=== PATIENT | female | born 1975 | race Caucasian/White ===

== ENCOUNTER 2016-08-12 20:47 | Emergency (ER) | payer OTHER ==
[2016-08-12] MEDS ORDERED: SODIUM CHLORIDE 1,000 ML IV ONE (20:54)
[2016-08-12] MEDS ORDERED: METOCLOPRAMIDE HCL INJECTION 10 MG/2 ML VIAL IVPUSH ONE (20:54)
[2016-08-12 21:05] VITALS: BP 137/86; PULSE 88; TEMP 98; BMI 24.2
--- NOTE | 2016-08-12 21:25 | PDOC ---
History of Present Illness - General Chief Complaint: Migraine Headache Stated Complaint: MIGRAINE Time Seen by Provider: 08/12/16 20:50 History Source: Patient Exam Limitations: No Limitations - History of Present Illness Initial Comments: 08/12/16 22:42 Patient is a 41 year old female with a significant past medical history hypothyroidism and chronic back pain who presents to the ED with complaint of a migraine. Patient states that while sitting down at work she developed pounding headache in nature localized to the mid occipital region. Patient states that it started around noon gradually, and has worsened throughout the day. Patient states that the headache is exacerbated with movements and bright lights. Patient reports nausea. Patient states that she came home from work and fell into a deep sleep but her headache did not subside. She reports 2 vomiting episodes today. Patient reports intermittent headache localized to the same region during the past month that usually subsides on its own after about an hour without any intervention. Patient states that she saw her PCP last that noted that it is related to stress. She notes that taking aleve or oxycodone today did not alleviate her headache. No vision changes, tingling or numbness, neck pain/stiffness, new back pain, fever/chills. She denies chest pain, SOB, or palpitations. Pt states she has been having poor sleep ~6-7 hrs/day but this is typical for her since she has a kid. She denies any recent trauma or falls. Past History - Past Medical History Allergies/Adverse Reactions: Allergies Allergy/AdvReac Type Severity Reaction Status Date / Time No Known Allergies Allergy Verified 08/12/16 20:49 Home Medications: Ambulatory Orders Hydrocodone/Acetaminophen [Hydrocodon-Acetaminoph 7.5-325] 1 each PO PRN Levothyroxine [Synthroid -] 25 mcg PO DAILY 08/12/16 Other medical history: MIGRAINE/ BACK PAIN - Psycho/Social/Smoking Cessation Hx Anxiety: No Suicidal Ideation: No Smoking History: Current every day smoker Have you smoked in the past 12 months: Yes Number of Cigarettes Smoked Daily: 2 Information on smoking cessation initiated: Yes 'Breaking Loose' booklet given: 08/12/16 Hx Alcohol Use: No Drug/Substance Use Hx: No Substance Use Type: None Review of Systems - Review of Systems Able to Perform ROS?: Yes Comments:: 08/12/16 22:44 CONSTITUTIONAL: No reported: Fever, Chills, Diaphoresis, Generalized Weakness, Malaise, Loss of Appetite HEENT: No reported: Rhinorrhea, Nasal Congestion, Throat Pain, Throat Swelling, Difficulty Swallowing, Mouth Swelling, Ear Pain, Eye Pain, Visual Changes CARDIOVASCULAR: No reported: Chest Pain, Syncope, Palpitations, Irregular Heart Rate, Lightheadedness, Peripheral Edema RESPIRATORY: No reported: Cough, Shortness of Breath, SOB with Exertion, Orthopnea, Wheezing , Stridor, Hemoptysis GASTROINTESTINAL: Reported: nausea, vomiting No reported: Abdominal pain, Abdominal Distension, Diarrhea, Constipation, Melena, Hematochezia GENITOURINARY: No reported: Dysuria, Frequency, Urgency, Hesitancy, Flank Pain, Genital Pain MUSCULOSKELETAL: No reported: Myalgia, Arthralgia, Joint Swelling, Back pain, Neck Pain SKIN: No reported: Rash, Itching, Pallor HEMEATOLOGIC/IMMUNOLOGIC: No reported: Easy Bleeding, Easy Bruising, Lymphadenopathy, Frequent infections ENDOCRINE: No reported: Unexplained Weight Gain, Unexplained Weight Loss, Heat Intolerance , Cold Intolerance NEUROLOGIC: Reported: headache No reported: Focal Weakness, Paresthesias, Vertigo, Lightheadedness, Unsteady Gait, Seizure, Mental Status Changes, Incontinence PSYCHIATRIC: No reported: Anxiety, Depression *Physical Exam - Vital Signs Last Vital Signs Temp Pulse Resp BP Pulse Ox 98 F 88 16 137/86 99 08/12/16 20:59 08/12/16 20:59 08/12/16 20:59 08/12/16 20:59 08/12/16 20:59 - Physical Exam Comments: 08/12/16 22:44 GENERAL: The patient is awake, alert, and fully oriented, Nontoxic - in no acute distress. HEAD: Normocephalic, atraumatic. EYES: extraocular movements intact, sclera anicteric, conjunctiva clear, pupils 4mm and symmetrical and reactive to light ENT: Normal voice, Moist mucous membranes. NECK: Normal range of motion, supple LUNGS: Breath sounds equal, clear to auscultation bilaterally. No wheezes, no rhonchi, no rales. HEART: Regular rate and rhythm, without murmur, rub or gallop. ABDOMEN: Soft, nontender, normoactive bowel sounds. No guarding, no rebound.No CVA tenderness EXTREMITIES: Normal range of motion, no edema. No clubbing or cyanosis. No cords, erythema, or tenderness. NEUROLOGICAL: No facial assymetry, Normal speech, moving all 4 extremities spontaneously and symmetrically, normal gait. PSYCH: Normal mood, normal affect. SKIN: Warm, Dry, normal turgor ED Treatment Course - Medications Given in the ED: ED Medications Discontinued Medications Generic Name Dose Route Start Last Admin Trade Name Palq PRN Reason Stop Dose Admin Metoclopramide HCl 10 mg 08/12/16 20:54 08/12/16 21:06 Reglan Injection - IVPUSH 08/12/16 20:55 10 mg ONCE ONE Administration Medical Decision Making - Medical Decision Making 08/12/16 21:23 41y F hx of hypothyroidism, presents with worsening headache x 1 day. The pt endorses having intermittent headache over the past month, but today was uc hworse than usual. Pt had 2 episodes of vomiting today, no associated enurological complaints including dizzines, vision changes, numbness/tingling/ weakness, neck stiffness. pts exam unremarkble beside appeaering uncomfortable suspect possible migraine vs tension headache, possibly secondary to external stressors/lack of sleep considered possible SAH, however feel this is less likely as it has been intermittent for the past month and todays was gradual onset and worsened in intensity. will give reglan/fluids will reassess 08/12/16 21:31 08/12/16 22:44 08/12/16 23:07 08/12/16 23:59 pt feeling significantly improved ct head was obtgained which is negative will dc the pt with outpatient management I discussed the physical exam findings, ancillary test results and final diagnoses with the patient. I answered all of the patient's questions. The patient was satisfied with the care received and felt comfortable with the discharge plan and treatment plan. The patient will call their primary care physician within 24 hours to arrange follow-up and will return to the Emergency Department with any new, persistent or worsening symptoms. *DC/Admit/Observation/Transfer Diagnosis at time of Disposition: Headache Qualifiers: Headache type: tension-type Headache chronicity pattern: acute headache Intractability: not intractable Qualified Code(s): G44.209 - Tension-type headache, unspecified, not intractable - Discharge Dispostion Disposition: HOME Condition at time of disposition: Improved Admit: No - Referrals Referrals: Demetria Presley MD [Staff Physician] - - Patient Instructions Printed Discharge Instructions: DI for Hormonal and Tension Headaches Additional Instructions: Return to the emergency department immediately with ANY new, persistent or worsening symptoms including worsening headache, vision changes, numbness/ tingling/weakness, persistent nausea and vomiting or any other concerns. Make sure you are getting adaqute sleep and hydration. You MUST call and follow up with your doctor tomorrow for further evaluation of your symptoms. Your emergency department visit is not complete without a followup with your doctor for reevaluation. Results were discussed with you. Please make sure your doctor reviews the results of your emergency evaluation. If you had any xrays during your visit, it was read preliminarily by myself, a Radiologist will review it and if there are any additional findings we will call you. Print Language: POLISH
[2016-08-12] MEDS ORDERED: MAGNESIUM SULF 50% (8.12 MEQ/2 ML-1 GM VIAL) IVPB ONE (21:43)
[2016-08-12] MEDS ORDERED: ACETAMINOPHEN 325 MG TABLET (FP) PO ONE (21:44)
[2016-08-12] MEDS ORDERED: ACETAMINOPHEN 1000 MG/100 ML VIAL (NON FORMULARY) IVPB ONE (21:45)
[2016-08-12] MEDS ORDERED: ACETAMINOPHEN INJECTION 100 ML IVPB ONE (21:46)
[2016-08-12] MEDS ORDERED: MAGNESIUM SULF 50% (8.12 MEQ/2 ML-1 GM VIAL) ONE (21:47)
== END 2016-08-13 00:06 | disposition home or self-care (01) ==
LOC: FER 20:47
PROC: 3E033NZ Introduction of Analgesics, Hypnotics, Sedatives into Peripheral Vein, Percutaneous Approach (ICD-10-PCS; principal; 2016-08-12)
PROC: 3E033GC Introduction of Other Therapeutic Substance into Peripheral Vein, Percutaneous Approach (ICD-10-PCS; 2016-08-12)
PROC: 3E0337Z Introduction of Electrolytic and Water Balance Substance into Peripheral Vein, Percutaneous Approach (ICD-10-PCS; 2016-08-12)
DX: G44.209 Tension-type headache, unspecified, not intractable (principal); F17.210 Nicotine dependence, cigarettes, uncomplicated; E03.9 Hypothyroidism, unspecified; G89.29 Other chronic pain
CPT/HCPCS: 70450-TC; 84703; 96361; 96374; 96375; 99281-25

== ENCOUNTER 2018-05-23 11:12 | Emergency (ER) | payer OTHER ==
[2018-05-23] MEDS ORDERED: SODIUM CHLORIDE 1,000 ML IV STA (11:14)
--- NOTE | 2018-05-23 11:15 | PDOC ---
History of Present Illness - General History Source: Patient Exam Limitations: No Limitations - History of Present Illness Initial Comments: 43 yo F w a pmh of pancreatic neoplasm s/p central pancreatectomy removal 1 week prior, hypothyroidism, GERD, PUD, and migraines presents to the ER after she was discharged from the hospital yesterday after a weeks stay at [place] with diffuse epigastric abdominal pain which started last night at 11:00 Pm, 10/ 10 in intensity, is pressure like in nature, radiates to the back, and has been associated with multiple episodes of Vomiting which she states might have had some blood in it at the end. She reports originally she was throwing up only what she ate but then the vomit turned yellow and possibly a bit orange. There was nothing that appeared green in the vomitus. Months ago she had significant abdominal pain which was diagnosed as ulcers. She was ultimately found to have a neoplasm on her pancreas which was operated on and removed on May [address] Torres at [place]. The pathology results of the neoplasm have not resulted yet. During her week long hospital stay she was noted to have an anemia of 7.5 which was not treated. Patient has not had a bowel movement since before her surgery on May 15. I spoke with her surgeon - Dr. Torres who is concerned that she might have gastroparesis and requested for her to be given IV hydration and analgesia. Patient denies any fevers, chills, infections, SOB, difficulty breathing, headache, blurry vision, neck pain, chest pain, dysuria, frequency, urgency, weakness, numbness, or tingling. PCP: Demetria Presley Surgeon: Dr. Torres - [phone] PSH: central pancreatectomy, Lap sebastian for ectopic removal Allergies: NKA, NKDA Social Hx: Denies smoking, drinking, or other substance usage Meds: Percocet, motrin, omerprazole, levaquin <Edgard Mendiola - Last Filed: 05/23/18 15:06> <Velma Arcos - Last Filed: 05/23/18 16:36> - General Chief Complaint: Nausea/Vomiting Stated Complaint: N/V ABD PAIN Time Seen by Provider: 05/23/18 11:15 Past History - Suicide/Smoking/Psychosocial Hx Smoking History: Current every day smoker Have you smoked in the past 12 months: Yes Number of Cigarettes Smoked Daily: 2 'Breaking Loose' booklet given: 08/13/16 Hx Alcohol Use: No Drug/Substance Use Hx: No Substance Use Type: None <Edgard Mendiola - Last Filed: 05/23/18 15:06> <Velma Arcos - Last Filed: 05/23/18 16:36> - Past Medical History Allergies/Adverse Reactions: Allergies Allergy/AdvReac Type Severity Reaction Status Date / Time No Known Allergies Allergy Verified 05/23/18 11:13 Home Medications: Ambulatory Orders Levofloxacin [Levaquin] 500 mg PO DAILY 05/23/18 Oxycodone HCl/Acetaminophen [Percocet 5-325 mg Tablet] 1 - 2 tab PO Q4H Pantoprazole Sodium 40 mg PO DAILY 05/23/18 Review of Systems - Review of Systems Able to Perform ROS?: Yes Comments:: CONSTITUTIONAL: Present: Fatigue Absent: fever, no chills EYES: Absent: visual changes ENT: Absent: ear pain, no sore throat CARDIOVASCULAR: Absent: chest pain, no palpitations RESPIRATORY: Absent: cough, no SOB GI: Present: Abdominal pain, nausea, vomiting Absent: no constipation, no diarrhea GENITOURINARY: Absent: dysuria, no frequency, no hematuria MUSKULOSKELETAL: Present: Back pain Absent: no arthralgia, no myalgia SKIN: Absent: rash NEURO: Absent: headache <DcviolaAnthonyEdgard - Last Filed: 05/23/18 15:06> *Physical Exam - Physical Exam Comments: GENERAL: Patient is in significant distress due to pain. Well developed, well nourished. Awake and alert. HEENT: Normocephalic, atraumatic. PERRLA, EOMI. + conjunctival pallor. Sclera are non- icteric. Dry mucous membranes. Oropharynx is clear. NECK: Supple. Full ROM. No JVD. No thyromegaly. No lymphadenopathy. CARDIOVASCULAR: Regular rate and rhythm. No murmurs, rubs, or gallops. Distal pulses are 2+ and symmetric. PULMONARY: No evidence of respiratory distress. Lungs clear to auscultation bilaterally. No wheezing, rales or rhonchi. ABDOMINAL: There is significant TTP in the epigastric region and general abdominal discomfort to palpation diffusely. Abdomen is soft with a midline surgical scar and elida. The top half of the surgical scar appears more erythematous than the lower half but the top half is not more tender to palpation than the lower half. Absent bowel sounds. Abdomen is non distended. No rebound or guarding. No organomegaly. MUSCULOSKELETAL Normal range of motion at all joints. No bony deformities or tenderness. No CVA tenderness. EXTREMITIES: No cyanosis. No clubbing. No edema. No calf tenderness. SKIN: Warm and dry. Normal capillary refill. No rashes other than surgical site. No jaundice. NEUROLOGICAL: Alert, awake, appropriate. Cranial nerves 2-12 intact. Normal speech. Gait is normal without ataxia. PSYCHIATRIC: Cooperative. Good eye contact. Appropriate mood and affect. <Edgard Mendiola - Last Filed: 05/23/18 15:06> - Vital Signs Last Vital Signs Temp Pulse Resp BP Pulse Ox 98.8 F 76 17 115/65 100 05/23/18 14:14 05/23/18 14:14 05/23/18 11:13 05/23/18 14:14 05/23/18 14:14 <Velma Arcos - Last Filed: 05/23/18 16:36> Moderate Sedation - Procedure Monitoring Vital Signs: Procedure Monitoring Vital Signs Temperature 98.8 F 05/23/18 14:14 Pulse Rate 76 05/23/18 14:14 Respiratory Rate 17 05/23/18 11:13 Blood Pressure 115/65 05/23/18 14:14 O2 Sat by Pulse Oximetry (%) 100 05/23/18 14:14 <Velma Arcos - Last Filed: 05/23/18 16:36> ED Treatment Course - LABORATORY CBC & Chemistry Diagram: 05/23/18 11:24 05/23/18 11:24 <Edgard Mendiola - Last Filed: 05/23/18 15:06> - LABORATORY CBC & Chemistry Diagram: 05/23/18 11:24 05/23/18 11:24 - ADDITIONAL ORDERS Additional order review: Laboratory Results 05/23/18 05/23/18 05/23/18 12:39 12:29 12:00 Sodium Potassium Chloride Carbon Dioxide Anion Gap BUN Creatinine Creat Clearance w eGFR Random Glucose Lactic Acid Calcium Total Bilirubin AST ALT Alkaline Phosphatase Total Protein Albumin Lipase Serum , Qual Negative Urine Color Yellow Urine Appearance Clear Urine pH 7.0 Ur Specific [place] 1.020 Urine Protein Negative Urine Glucose (UA) Negative Urine Ketones 3+ H Urine Blood Trace-intact H Urine Nitrite Negative Urine Bilirubin Negative Urine Urobilinogen 0.2 Ur Leukocyte Esterase Negative Urine RBC 0-2 Urine WBC 2-5 Ur Epithelial Cells 3+ Urine Bacteria 3+ Urine HCG, Qual Negative Blood Type Antibody Screen 05/23/18 05/23/18 05/23/18 11:43 11:36 11:34 Sodium Potassium Chloride Carbon Dioxide Anion Gap BUN Creatinine Creat Clearance w eGFR Random Glucose Lactic Acid 0.7 Calcium Total Bilirubin AST ALT Alkaline Phosphatase Total Protein Albumin Lipase Serum , Qual Urine Color Urine Appearance Urine pH Ur Specific [place] Urine Protein Urine Glucose (UA) Urine Ketones Urine Blood Urine Nitrite Urine Bilirubin Urine Urobilinogen Ur Leukocyte Esterase Urine RBC Urine WBC Ur Epithelial Cells Urine Bacteria Urine HCG, Qual Blood Type Cancelled Cancelled Antibody Screen Cancelled 05/23/18 11:24 Sodium 137 Potassium 3.9 Chloride 103 Carbon Dioxide 23 Anion Gap 11 BUN 5 L Creatinine 0.6 Creat Clearance w eGFR > 60 Random Glucose 106 Lactic Acid Calcium 9.0 Total Bilirubin 0.5 AST 52 H ALT 43 Alkaline Phosphatase 95 Total Protein 6.5 Albumin 3.4 Lipase 2599 H Serum , Qual Urine Color Urine Appearance Urine pH Ur Specific [place] Urine Protein Urine Glucose (UA) Urine Ketones Urine Blood Urine Nitrite Urine Bilirubin Urine Urobilinogen Ur Leukocyte Esterase Urine RBC Urine WBC Ur Epithelial Cells Urine Bacteria Urine HCG, Qual Blood Type Antibody Screen 05/23/18 11:24 RBC 3.20 L MCV 92.0 MCHC 32.9 RDW 14.0 MPV 8.8 Neutrophils % 89.4 H Lymphocytes % 6.6 L Monocytes % 3.6 L Eosinophils % 0.1 Basophils % 0.3 - RADIOLOGY Radiology Studies Ordered: Category Date Time Status ABDOMEN & PELVIS CT WITH CONTR [CT] Stat CT Scan 05/23/18 13:24 Taken - Medications Given in the ED: ED Medications Discontinued Medications Generic Name Dose Route Start Last Admin Trade Name Freq PRN Reason Stop Dose Admin Acetaminophen 1,000 mg 05/23/18 11:25 05/23/18 11:30 Ofirmev Injection - IVPB 05/23/18 11:26 1,000 mg ONCE ONE Administration Sodium Chloride 1,000 mls @ 1,000 mls/hr 05/23/18 11:14 05/23/18 11:20 Normal Saline - IV 05/23/18 12:13 1,000 mls/hr ASDIR STA Administration Famotidine/Sodium Chloride 20 mg in 50 mls @ 100 mls/hr 05/23/18 12:15 12:48 Pepcid 20 Mg Premixed Ivpb - IVPB 05/23/18 12:44 100 mls/hr ONCE ONE Administration Lactated Ringer's 1,000 ml in 1,000 mls @ 1,000 mls/hr 05/23/18 13:01 13:27 Lactated Ringers Solution IV 05/23/18 14:00 1,000 mls/hr ONCE ONE Administration Lidocaine 2 patch 05/23/18 11:33 05/23/18 11:54 Lidoderm Patch - TP 05/23/18 11:34 2 patch ONCE ONE Administration Metoclopramide HCl 10 mg 05/23/18 12:15 05/23/18 12:34 Reglan Injection - IVPUSH 05/23/18 12:16 10 mg ONCE ONE Administration Morphine Sulfate 4 mg 05/23/18 11:36 05/23/18 11:45 Morphine Injection - IVPUSH 05/23/18 11:37 4 mg ONCE ONE Administration Morphine Sulfate 4 mg 05/23/18 12:15 05/23/18 12:34 Morphine Injection - IVPUSH 05/23/18 12:16 4 mg ONCE ONE Administration Ondansetron HCl 4 mg 05/23/18 11:25 05/23/18 11:45 Zofran Injection IVPUSH 05/23/18 11:26 4 mg ONCE ONE Administration Sodium Chloride 1,000 ml 05/23/18 11:40 05/23/18 12:34 Normal Saline - IV 05/23/18 11:41 1,000 ml ONCE ONE Administration <Velma Arcos - Last Filed: 05/23/18 16:36> Medical Decision Making - Medical Decision Making 43 yo F w a pmh of pancreatic neoplasm s/p central pancreatectomy removal 1 week prior, hypothyroidism, GERD, PUD, and migraines presents to the ER after she was discharged from the hospital yesterday after a weeks stay at [place] with diffuse epigastric abdominal pain which started last night at 11:00 Pm, 10/ 10 in intensity, is pressure like in nature, radiates to the back, and has been associated with multiple episodes of Vomiting which she states might have had some blood in it at the end. She reports originally she was throwing up only what she ate but then the vomit turned yello and possibly a bit orange. There was nothing that appeared green in the vomitus. Months ago she had significant abdominal pain which was diagnosed as ulcers. She was ultimately found to have a neoplasm on her pancreas which was operated on and removed on May [address] Torres at [place]. The pathology results of the neoplasm have not resulted yet. During her week long hospital stay she was noted to have an anemia of 7.5 which was not treated. Patient has not had a bowel movement since before her surgery on May 15. I spoke with her surgeon - Dr. Torres who is concerned that she might have gastroparesis and requested for her to be given IV hydration and analgesia. - VSS DDx IBNLT: Gastroparesis vs paralytic ileus vs SBO, Surgical site infection, pancreatitis, peritonitis, post surgical pain, dehydration, cholecystitis, gastritis Plan: Labs, urine, EKG, CTAP, Analgesia, Zofran, IV hydration, more supportive care, re-assess, possible transfer back to [place]. Patient cannot tolerate PO contrast, so will only obtain an IV CTAP. Lipase elevated at 2599. This is likely a case of Post-OP pancreatitis. Will start administering lactated ringers. CTAP shows clear cut pancreatitis with likely pseudocyst Spoke with her Doctor Brian who says they will take the patient back at [place] - Dr. Torres is coordinating the transfer through the [facility] transfer center. - Requests disc of CT to be given with patient. [phone] - [place] transfer line center. <Edgard Mendiola - Last Filed: 05/23/18 15:06> - Medical Decision Making spoke with surgical services [facility], med/surg bed at [place]. signed out case with HPI/PE, labs and CT results, ED course. transfer center to dispatch ambulance 430PM 05/23/18 16:30 05/23/18 16:35 <Velma Arcos - Last Filed: 05/23/18 16:36> *DC/Admit/Observation/Transfer - Discharge Dispostion Decision to Admit order: No <Edgard Mendiola - Last Filed: 05/23/18 15:06> - Transfer to Acute Care Facility Receiving Facility: [facility]) (Dr Torres, surgical attending) <Velma Arcos - Last Filed: 05/23/18 16:36> Diagnosis at time of Disposition: Acute pancreatitis Qualifiers: Pancreatitis type: unspecified pancreatitis type Acute pancreatitis complication: unspecified Qualified Code(s): K85.90 - Acute pancreatitis without necrosis or infection, unspecified - Discharge Dispostion Disposition: TRANSFER ACUTE CARE/OTHER HOSP Condition at time of disposition: Guarded
[2018-05-23 11:17] VITALS: BMI 22.6
[2018-05-23] MEDS ORDERED: ACETAMINOPHEN 1000 MG/100 ML VIAL (NON FORMULARY) IVPB ONE (11:25)
[2018-05-23] MEDS ORDERED: ONDANSETRON 4 MG/2 ML VIAL ONE (11:25)
[2018-05-23] MEDS ORDERED: ONDANSETRON 4 MG/2 ML VIAL IVPUSH ONE (11:25)
[2018-05-23] MEDS ORDERED: ACETAMINOPHEN INJECTION 100 ML IVPB ONE (11:27)
[2018-05-23] MEDS ORDERED: LIDOCAINE 5% TOPICAL PATCH TP ONE (11:33)
[2018-05-23] MEDS ORDERED: morphine CARPU-JECT 4 MG/1 ML DISP.SYRIN IVPUSH ONE ×4 (11:36→17:08)
[2018-05-23 11:37] LABS: BASO % 0.3 % (0-2.0); EOS % 0.1 % (0-4.5); HEMATOCRIT 29.5 % (32.4-45.2); HEMOGLOBIN 9.7 GM/dl (10.7-15.3); LYMPH % 6.6 % (8-40); MCH 30.3 pg (25.7-33.7); MCHC 32.9 g/dl (32.0-36.0); MEAN PLT VOLUME 8.8 fl (7.5-11.1); MONO % 3.6 % (3.8-10.2); NEUT % 89.4 % (42.8-82.8); PLATELET COUNT 248 K/MM3 (134-434); WHITE BLOOD COUNT 7.5 K/mm3 (4.0-10.8)
[2018-05-23] MEDS ORDERED: morphine SULFATE 4 MG/ML VIAL ONE ×4 (11:39→17:08)
[2018-05-23] MEDS ORDERED: SODIUM CHLORIDE 0.9% 500 ML INFUS.BAG IV ONE (11:40)
[2018-05-23 11:45] LABS: ALBUMIN 3.4 g/dl (3.4-5.0); ALK PHOS 95 U/L (45-117); ANION GAP 11 MMOL/L (8-16); BILIRUBIN,TOTAL 0.5 mg/dl (0.2-1); BLOOD UREA NITROGEN 5 mg/dl (7-18); CHLORIDE 103 mmol/L (98-107); CO2 23 mmol/L (21-32); CREATININE 0.6 mg/dl (0.55-1.3); GLUCOSE,RANDOM 106 mg/dl (74-106); POTASSIUM 3.9 mmol/L (3.5-5.1); SGOT/AST 52 U/L (15-37); SGPT/ALT 43 U/L (13-61); SODIUM 137 mmol/L (136-145); TOT PROT 6.5 g/dl (6.4-8.2)
[2018-05-23] MEDS ORDERED: LIDOCAINE 5% TOPICAL PATCH ONE (11:47)
[2018-05-23] MEDS ORDERED: METOCLOPRAMIDE HCL INJECTION 10 MG/2 ML VIAL IVPUSH ONE (12:15)
[2018-05-23] MEDS ORDERED: FAMOTIDINE 20 MG/50 ML IVPB 20 MG/50 ML MG IVPB ONE ×2 (12:15→12:18)
[2018-05-23] MEDS ORDERED: METOCLOPRAMIDE HCL INJECTION 10 MG/2 ML VIAL ONE (12:18)
--- NOTE | 2018-05-23 12:21 | PDOC ---
Attending Attestation - Resident Resident Name: Edgard Mendiola - ED Attending Attestation I have performed the following: I have examined & evaluated the patient, The case was reviewed & discussed with the resident, I agree w/resident's findings & plan - HPI HPI: 05/23/18 12:17 43 YOF with h/o hypothyroidism, migraines and recent pancreatic mass s/p central pancreatic [facility] Torres, on 05/15/18, c/b anemia, transfused blood. Dcd on levaquin course, pain control regimen, tolerating PO and otherwise unremarkable hospitalization stay when she was dcd yesterday. Now with diffuse abdominal pain, nausea and NBNB emesis x multiple episodes, since last night. +flatus, but still no BM. No fevers. Abdominal surgical site with elida still in place, no drainage/ purulence or skin changes. - Physicial Exam PE: 05/23/18 12:17 in moderate distress 2/2 pain, malaised. PERRL, EOMI, dry mucus membranes, pale conjunctiva, anicteric; neck supple. lungs clear, RRR, abdomen soft diffusely tender, midline vertical surgical scar c/d with elida, no prominent erythema or spreading skin changes, no palp fluctuance or firmness. no abdominal wound dehiscence. no CVAT. HUNTER x4, no focal neuro deficits. No peripheral edema. normal color for ethnicity, [facility]. 05/23/18 12:19 - Medical Decision Making 05/23/18 12:18 See HPI for details Vital signs reviewed, wnl. DDx. post op GI infection, wound dehiscence/infection, pancreatitis, hepatitis, electrolyte/metabolic derangements, post op ileus vs SBO. fistula, anastomotic leak. peritonititis, perf viscus. Prior notes reviewed, including admissions, discharges and consultations from [facility]. laboratory results and imaging reviewed, basic labs and lytes wnl, baseline anemia 9.7/29 similar to prior. also notable for +very elevated lipase , c/w acute pancreatitis.. neg preg test UA_unremarkable. no s/s infection. EKG normal sinus rhythm at 81 bpm, no interval abnormalities, narrow QRS, ST and T wave segments and morphology normal. CT scan a/p, with appearance of acute pancreatitis and ?pseudocyst, inflammatory /edematous changes to surrounding structures and mesentery, and small FF/ ascites noted. ED course: analgesia x multiple rounds, IVF, pepcid and antiemetics zofran/ reglan attempts at oral contrast, but cannot tolerate despite meds labs c/w acute pancreatitis, changed to LR hydration. spoke with primary surgeon, Dr Torres by the resident involved. with results. accepted for acute pancreatitis in post op state, admission, bowel rest, NPO and symptom control. arranging for transfer to [facility]. - discussed results with patient and surgeon, paperwork and transfer consent filled out with impression and plan and surgical admission Transfer Note: The risks and benefits of transfer to another facility were discussed with the patient and/or their family. The patient and /or family CONSENT TO TRANSFER. Specific Risks of Transfer Include: worsening of the patient's condition during the transfer process, which may lead to the patient's permanent disability or . Specific Benefits of Transfer Include: providing the patient with a higher level of care/specialized care not available at [facility]. Please see the Hospital TRANSFER FORM for further details of this patient's transfer. Calls made to arrange follow-up care. 05/23/18 15:06 Heart Score/ECG Review - ECG Impressions Normal ECG: Yes Comment:: 05/23/18 12:20 EKG normal sinus rhythm at 81 bpm, no interval abnormalities, narrow QRS, ST and T wave segments and morphology normal.
[2018-05-23 12:39] LABS: LIPASE 2599 U/L (73-393)
[2018-05-23] MEDS ORDERED: LACTATED RINGERS SOLUTION 1,000 ML/1,000 ML INFUS.BAG IV ONE (13:01)
[2018-05-23 13:10] LABS: URINE APPEARANCE Clear; URINE BILIRUBIN Negative (NEGATIVE); URINE COLOR Yellow; URINE GLUCOSE (UA) Negative (NEGATIVE); URINE KETONE 3+ (NEGATIVE); URINE LEUK ESTERASE Negative (NEGATIVE); URINE NITRITE Negative (NEGATIVE); URINE PROTEIN Negative (NEGATIVE); URINE UROBILINOGEN 0.2 (0.2-1.0)
[2018-05-23 13:18] LABS: EPI CELLS 3+ /HPF; URINE BACTERIA 3+ /hpf (NEGATIVE); URINE RBC 0-2 /hpf (0-3)
--- NOTE | 2018-05-23 14:43 | EKG ---
Test Reason : Blood Pressure : / mmHG Vent. Rate : 081 BPM Atrial Rate : 081 BPM P-R Int : 144 ms QRS Dur : 072 ms QT Int : 394 ms P-R-T Axes : 075 068 058 degrees QTc Int : 457 ms POOR DATA QUALITY, INTERPRETATION MAY BE ADVERSELY AFFECTED NORMAL SINUS RHYTHM NORMAL ECG NO PREVIOUS ECGS AVAILABLE Confirmed by Oseas Miller MD ([id number]) on 05/23/2018 2:43:09 PM Referred By: DANIEL EVANS Confirmed By:Oseas Miller MD
[2018-05-23] MEDS ORDERED: LACTATED RINGERS SOLUTION 1,000 ML/1,000 ML INFUS.BAG IV SCH (15:15)
[2018-05-23 16:55] VITALS: BP 129/85; PULSE 85; TEMP 98.5
[2018-05-23] MEDS ORDERED: LIDOCAINE PATCH REMOVAL MC SCH (22:00)
--- NOTE | 2018-05-26 16:32 | EKG ---
Test Reason : Blood Pressure : / mmHG Vent. Rate : 089 BPM Atrial Rate : 089 BPM P-R Int : 132 ms QRS Dur : 072 ms QT Int : 362 ms P-R-T Axes : 071 057 007 degrees QTc Int : 440 ms NORMAL SINUS RHYTHM NORMAL ECG WHEN COMPARED WITH ECG OF 23-MAY-2018 11:50, NO SIGNIFICANT CHANGE WAS FOUND Confirmed by Ge Sampson ([id number]) on 05/26/2018 4:32:34 PM Referred By: Confirmed By:Ge Sampson
== END 2018-05-23 17:50 | disposition short-term general hospital (02) ==
LOC: FER 11:12
PROC: 3E033NZ Introduction of Analgesics, Hypnotics, Sedatives into Peripheral Vein, Percutaneous Approach (ICD-10-PCS; principal; 2018-05-23)
PROC: 3E0337Z Introduction of Electrolytic and Water Balance Substance into Peripheral Vein, Percutaneous Approach (ICD-10-PCS; 2018-05-23)
PROC: 3E033GC Introduction of Other Therapeutic Substance into Peripheral Vein, Percutaneous Approach (ICD-10-PCS; 2018-05-23)
DX: K85.90 Acute pancreatitis without necrosis or infection, unspecified (principal); F17.210 Nicotine dependence, cigarettes, uncomplicated; D49.0 Neoplasm of unspecified behavior of digestive system; E03.9 Hypothyroidism, unspecified; K27.9 Peptic ulcer, site unspecified, unspecified as acute or chronic, without hemorrhage or perforation
CPT/HCPCS: 36415; 74177-TC; 80053; 81003; 81015; 83605; 83690; 84703; 85025; 87086; 93005; 99285-25; J0131; J7030

== ENCOUNTER 2018-07-05 21:35 | Emergency (ER) | payer OTHER ==
[2018-07-05] MEDS ORDERED: ONDANSETRON 4 MG/2 ML VIAL IVPUSH ONE (21:53)
[2018-07-05] MEDS ORDERED: SODIUM CHLORIDE 0.9% 500 ML INFUS.BAG IV ONE (21:53)
[2018-07-05 21:55] VITALS: BMI 24.2
--- NOTE | 2018-07-05 21:56 | PDOC ---
History of Present Illness - General Chief Complaint: Nausea/Vomiting Stated Complaint: ABDOMINAL PAIN Time Seen by Provider: 07/05/18 21:51 History Source: Sibling Exam Limitations: No Limitations - History of Present Illness Initial Comments: 07/06/18 06:28 abdominal pain, fever and vomiting 2 months post partial pancreatectomy Timing/Duration: 4-6 hours Severity: moderate Modifying Factors: improves with: eating, medication Associated Symptoms: reports: diaphoresis, fever/chills, loss of appetite, nausea/vomiting Past History - Past Medical History Allergies/Adverse Reactions: Allergies Allergy/AdvReac Type Severity Reaction Status Date / Time No Known Allergies Allergy Verified 07/05/18 21:37 Home Medications: Ambulatory Orders Lipase/Protease/Amylase [Jomar Dent 24,000 Units Capsule] 1 each PO AC 07/05/18 Metoclopramide Oral Soln [Reglan *Liquid*] 10 mg PO AC 07/05/18 Omeprazole 40 mg PO DAILY 07/05/18 COPD: No CHF: No DVT: No GI Disorders: Yes (PANCREATITIS) - Surgical History Abdominal Surgery: Yes (PANCREATIC MASS REMOVAL) - Suicide/Smoking/Psychosocial Hx Smoking History: Former smoker Have you smoked in the past 12 months: Yes Number of Cigarettes Smoked Daily: 2 Information on smoking cessation initiated: Yes 'Breaking Loose' booklet given: 08/13/16 Hx Alcohol Use: No Drug/Substance Use Hx: No Substance Use Type: None Review of Systems - Review of Systems All Other Systems: Reviewed and Negative *Physical Exam - Vital Signs Last Vital Signs Temp Pulse Resp BP Pulse Ox 102.8 F H 98 H 18 142/95 96 07/05/18 21:36 07/05/18 21:36 07/05/18 21:36 07/05/18 21:36 07/05/18 21:36 - Physical Exam General Appearance: Yes: Nourished HEENT: positive: Normal ENT Inspection Neck: negative: Lymphadenopathy (R), Lymphadenopathy (L) Respiratory/Chest: positive: Lungs Clear Cardiovascular: positive: Regular Rhythm Gastrointestinal/Abdominal: positive: Tender, Soft. negative: Rebound Lymphatic: negative: Adenopathy Musculoskeletal: positive: Normal Inspection Extremity: positive: Normal Capillary Refill Integumentary: positive: Normal Color Neurologic: positive: Fully Oriented Moderate Sedation - Procedure Monitoring Vital Signs: Procedure Monitoring Vital Signs Temperature 102.8 F H 07/05/18 21:36 Pulse Rate 98 H 07/05/18 21:36 Respiratory Rate 18 07/05/18 21:36 Blood Pressure 142/95 07/05/18 21:36 O2 Sat by Pulse Oximetry (%) 96 07/05/18 21:36 ED Treatment Course - LABORATORY CBC & Chemistry Diagram: 07/06/18 03:15 07/06/18 03:15 Medical Decision Making - Medical Decision Making 07/06/18 06:30 CXR: MARILIN, as read by me, referred to radiology for definitive review 07/06/18 06:45 A/P Febrile illness and abd pain 2 m post-op of unclear etiology. Patient reluctant to get another CT scan because of how many she's had before. Labs reviewed. Serial abd exams. Substantial improvement overnight after anti-emetics, IVF, and analgesics In AM, tolerating PO, now with low grade fever (100.5). At this time, flu test pending. Pancytopenia of unclear etiology (worsened after 2L NS). Low grade pancreatitis. Will coordinate care with her surgeon (Brian [phone]) *DC/Admit/Observation/Transfer Diagnosis at time of Disposition: Acute pancreatitis Qualifiers: Pancreatitis type: other Acute pancreatitis complication: unspecified Qualified Code(s): K85.80 - Other acute pancreatitis without necrosis or infection - Discharge Dispostion Condition at time of disposition: Good - Referrals - Patient Instructions - Post Discharge Activity
[2018-07-05] MEDS ORDERED: ACETAMINOPHEN INJECTION 100 ML IVPB ONE (22:23)
[2018-07-05] MEDS ORDERED: ONDANSETRON 4 MG/2 ML VIAL ONE (22:23)
[2018-07-05] MEDS ORDERED: ACETAMINOPHEN 1000 MG/100 ML VIAL (NON FORMULARY) IVPB ONE (22:26)
[2018-07-05 22:40] LABS: ALBUMIN 4.1 g/dl (3.4-5.0); ALK PHOS 64 U/L (45-117); ANION GAP 10 MMOL/L (8-16); BILIRUBIN,TOTAL 0.8 mg/dl (0.2-1); BLOOD UREA NITROGEN 15 mg/dl (7-18); CALCIUM 8.8 mg/dl (8.5-10); CHLORIDE 99 mmol/L (98-107); CO2 26 mmol/L (21-32); CREATININE 0.8 mg/dl (0.55-1.3); GLUCOSE,RANDOM 104 mg/dl (74-106); POTASSIUM 3.6 mmol/L (3.5-5.1); SGOT/AST 28 U/L (15-37); SGPT/ALT 19 U/L (13-61); SODIUM 135 mmol/L (136-145); TOT PROT 6.9 g/dl (6.4-8.2)
[2018-07-05] MEDS ORDERED: morphine CARPU-JECT 10 MG/1 ML DISP.SYRIN IVPUSH ONE (23:00)
[2018-07-05] MEDS ORDERED: morphine SULFATE 4 MG/ML VIAL ONE (23:04)
[2018-07-05 23:15] LABS: BASO % 0.1 % (0-2.0); EOS % 0.3 % (0-4.5); HEMATOCRIT 33.4 % (32.4-45.2); HEMOGLOBIN 11.4 GM/dL (10.7-15.3); LYMPH % 5.1 % (8-40); MCH 29.8 pg (25.7-33.7); MCHC 34.2 g/dl (32.0-36.0); MEAN CELL VOLUME 87.2 fl (80-96); MEAN PLT VOLUME 9.2 fl (7.5-11.1); MONO % 4.1 % (3.8-10.2); NEUT % 90.4 % (42.8-82.8); PLATELET COUNT 81 K/MM3 (134-434); RBC 3.83 M/mm3 (3.60-5.2); RDW 15.5 % (11.6-15.6); WHITE BLOOD COUNT 4.2 K/mm3 (4.0-10.0)
[2018-07-05 23:31] LABS: LIPASE 788 U/L (73-393)
[2018-07-06 04:04] LABS: BASO % 0.2 % (0-2.0); EOS % 0.4 % (0-4.5); HEMATOCRIT 30.6 % (32.4-45.2); HEMOGLOBIN 10.5 GM/dL (10.7-15.3); LYMPH % 10.7 % (8-40); MCH 29.8 pg (25.7-33.7); MCHC 34.4 g/dl (32.0-36.0); MEAN CELL VOLUME 86.8 fl (80-96); MEAN PLT VOLUME 8.8 fl (7.5-11.1); MONO % 4.1 % (3.8-10.2); NEUT % 84.6 % (42.8-82.8); PLATELET COUNT 69 K/MM3 (134-434); RBC 3.53 M/mm3 (3.60-5.2); RDW 15.7 % (11.6-15.6); WHITE BLOOD COUNT 3.2 K/mm3 (4.0-10.0)
[2018-07-06 04:22] LABS: INR 1.15 (0.83-1.09); PROTHROMBIN TIME (PATIENT) 13.6 SEC (9.7-13.0)
[2018-07-06 04:25] LABS: ACTIVATED PTT 32.5 SECONDS (25.2-36.5)
[2018-07-06 04:36] LABS: ALBUMIN 3.4 g/dl (3.4-5.0); ALK PHOS 60 U/L (45-117); ANION GAP 5 MMOL/L (8-16); BILIRUBIN,TOTAL 0.5 mg/dL (0.2-1); BLOOD UREA NITROGEN 12 mg/dL (7-18); CHLORIDE 106 mmol/L (98-107); CO2 26 mmol/L (21-32); CREATININE 0.6 mg/dL (0.55-1.3); GLUCOSE,RANDOM 93 mg/dL (74-106); LDH 168 U/L (84-246); LIPASE 736 U/L (73-393); POTASSIUM 3.5 mmol/L (3.5-5.1); SGOT/AST 21 U/L (15-37); SGPT/ALT 24 U/L (13-61); SODIUM 137 mmol/L (136-145); TOT PROT 6.2 g/dl (6.4-8.2)
[2018-07-06] MEDS ORDERED: ACETAMINOPHEN 1000 MG/100 ML VIAL (NON FORMULARY) IVPB ONE (07:16)
[2018-07-06] MEDS ORDERED: ACETAMINOPHEN INJECTION 100 ML IVPB ONE (07:19)
--- NOTE | 2018-07-06 07:21 | PDOC ---
*Physical Exam - Vital Signs Last Vital Signs Temp Pulse Resp BP Pulse Ox 100.5 F H 88 18 125/67 96 07/06/18 05:45 07/06/18 05:45 07/06/18 05:45 07/06/18 05:45 07/06/18 05:45 ED Treatment Course - LABORATORY CBC & Chemistry Diagram: 07/06/18 03:15 07/06/18 03:15 - ADDITIONAL ORDERS Additional order review: Laboratory Results 07/06/18 07/06/18 07/05/18 03:15 03:15 22:50 PT with INR 13.60 H INR 1.15 H PTT (Actin FS) 32.5 Sodium 137 Potassium 3.5 Chloride 106 Carbon Dioxide 26 Anion Gap 5 L BUN 12 Creatinine 0.6 Creat Clearance w eGFR 110.17 Random Glucose 93 Lactic Acid Calcium 8.0 L Total Bilirubin 0.5 AST 21 ALT 24 Alkaline Phosphatase 60 LD Total 168 Total Protein 6.2 L Albumin 3.4 Lipase 736 H Urine Color Urine Appearance Urine pH Urine Protein Urine Glucose (UA) Urine Ketones Urine Blood Urine Nitrite Urine Bilirubin Urine Urobilinogen Ur Leukocyte Esterase Urine HCG, Qual Negative 07/05/18 07/05/18 07/05/18 22:50 22:10 22:10 PT with INR INR PTT (Actin FS) Sodium 135 L Potassium 3.6 Chloride 99 Carbon Dioxide 26 Anion Gap 10 BUN 15 Creatinine 0.8 Creat Clearance w eGFR 79.05 Random Glucose 104 Lactic Acid 0.8 Calcium 8.8 Total Bilirubin 0.8 AST 28 ALT 19 Alkaline Phosphatase 64 LD Total Total Protein 6.9 Albumin 4.1 Lipase 788 H Urine Color Yellow Urine Appearance Clear Urine pH 8.5 H Urine Protein Negative Urine Glucose (UA) Negative Urine Ketones Negative Urine Blood 2+ Urine Nitrite Negative Urine Bilirubin Negative Urine Urobilinogen 0.2 Ur Leukocyte Esterase Negative Urine HCG, Qual 07/06/18 07/05/18 03:15 22:10 RBC 3.53 L 3.83 MCV 86.8 87.2 MCHC 34.4 34.2 RDW 15.7 H 15.5 MPV 8.8 9.2 Neutrophils % 84.6 H 90.4 H Lymphocytes % 10.7 D 5.1 L Monocytes % 4.1 4.1 Eosinophils % 0.4 0.3 Basophils % 0.2 0.1 - Medications Given in the ED: ED Medications Discontinued Medications Generic Name Dose Route Start Last Admin Trade Name Samantha PRN Reason Stop Dose Admin Acetaminophen 1,000 mg 07/05/18 22:26 07/05/18 22:30 Ofirmev Injection - IVPB 07/05/18 22:27 1,000 mg ONCE ONE Administration Morphine Sulfate 6 mg 07/05/18 23:00 07/05/18 23:11 Morphine Injection - IVPUSH 07/05/18 23:01 6 mg ONCE ONE Administration Ondansetron HCl 4 mg 07/05/18 21:53 07/05/18 22:25 Zofran Injection IVPUSH 07/05/18 21:54 4 mg ONCE ONE Administration Sodium Chloride 1,000 ml 07/05/18 21:53 07/05/18 22:10 Normal Saline - IV 07/05/18 21:54 1,000 ml ONCE ONE Administration Medical Decision Making - Medical Decision Making 07/06/18 07:[address] Pabon at 7am shift change. Pt is 2 months post op from partial pancreatectomy performed at [place] for neuroendocrine tumor. She presented last night with fever, diffuse abd pain. Labs and urine obtained, CXR - no obvious source of fever. Repeat labs were reassuring, however, source of fever has not been elucidated. Dr. Pabon reached out to patient's surgeon, however, it was a covering doctor. Case was discussed with hospitalist and surgery, CT recommended. Patient was initially resistant to CT, stating that her surgeon cautioned her against getting CTs (patient is unclear on why). At this point, patient has been drinking gastroview, but would still like to speak to her surgeon prior to obtaining CT. I will attempt to contact at 8am in the hopes that she is available. Patient has started to develop a temp again, I will give tylenol. Dr. Torrse 07/06/18 09:07 Case d/w Dr. Torres's PA, who was familiar with patient's case. Agreed with plan to obtain CT, as the fever is a new finding and the surgery was 2 months ago. Pt agrees to CT. 07/06/18 12:46 Pt with no significant findings on CT. No signs of intraabdominal collection or infection. Discussed with patient. Labs do not show a leukocytosis or shift, no signs of infection in urine or CXR. Recommended close outpatient f/u with her surgeon. Return precautions given- persistent fever or if she develops new symptoms. *DC/Admit/Observation/Transfer Diagnosis at time of Disposition: Abdominal pain Qualifiers: Abdominal location: generalized Qualified Code(s): R10.84 - Generalized abdominal pain Fever Qualifiers: Fever type: unspecified Qualified Code(s): R50.9 - Fever, unspecified - Discharge Dispostion Disposition: HOME Condition at time of disposition: Stable Decision to Admit order: No - Prescriptions Prescriptions: Ondansetron [Zofran Odt -] 4 mg SL TID PRN #21 od.tablet PRN Reason: Nausea - Referrals - Patient Instructions Printed Discharge Instructions: DI for Abdominal Pain-Adult, DI for Fever ( Symptom) -- Adult Additional Instructions: Follow up with your surgeon within the next 2-[address] results were reassuring that there is not currently an infection in your abdomen. Eat bland foods and clear liquids for now until you feel better. If you have persistent fever, worsening pain, or develop of any new symptoms, please return to the ER immediately. - Post Discharge Activity
[2018-07-06] MEDS ORDERED: ONDANSETRON 4 MG/2 ML VIAL IVPUSH ONE (10:30)
[2018-07-06] MEDS ORDERED: ONDANSETRON 4 MG/2 ML VIAL ONE (10:32)
[2018-07-06] MEDS ORDERED: LIDOCAINE 5% TOPICAL PATCH TP ONE (10:34)
[2018-07-06] MEDS ORDERED: LIDOCAINE 5% TOPICAL PATCH ONE (10:35)
[2018-07-06 11:10] VITALS: BP 137/75; PULSE 68; TEMP 98.6
[2018-07-06] MEDS ORDERED: LIDOCAINE PATCH REMOVAL MC SCH (22:00)
== END 2018-07-06 12:55 | disposition home or self-care (01) ==
LOC: FER 21:35
PROC: 3E0337Z Introduction of Electrolytic and Water Balance Substance into Peripheral Vein, Percutaneous Approach (ICD-10-PCS; principal; 2018-07-05)
PROC: 3E033NZ Introduction of Analgesics, Hypnotics, Sedatives into Peripheral Vein, Percutaneous Approach (ICD-10-PCS; 2018-07-05)
PROC: 3E033GC Introduction of Other Therapeutic Substance into Peripheral Vein, Percutaneous Approach (ICD-10-PCS; 2018-07-05)
DX: K85.80 Other acute pancreatitis without necrosis or infection (principal); Z87.891 Personal history of nicotine dependence
CPT/HCPCS: 36415; 71046-TC-FY; 74177-TC; 76700-TC; 80053; 83010; 83605; 83615; 83690; 84703; 85025; 85362; 85610; 85730; 87040; 87086; 87804; 99285-25; J0131

== ENCOUNTER 2019-03-04 10:38 | Emergency (ER) | payer OTHER ==
[2019-03-04 10:44] VITALS: BMI 25.0
[2019-03-04] MEDS ORDERED: METOCLOPRAMIDE HCL INJECTION 10 MG/2 ML VIAL IVPUSH ONE (10:50)
[2019-03-04] MEDS ORDERED: morphine CARPU-JECT 4 MG/1 ML DISP.SYRIN IVPUSH ONE (10:50)
[2019-03-04] MEDS ORDERED: SODIUM CHLORIDE 1,000 ML IV STA (10:50)
--- NOTE | 2019-03-04 10:57 | PDOC ---
History of Present Illness - General Chief Complaint: Pain, Acute Stated Complaint: right abd pain Time Seen by Provider: 03/04/19 10:40 History Source: Patient Exam Limitations: No Limitations - History of Present Illness Initial Comments: 03/04/19 10:52 HPI 44 yo F w a pmh of pancreatic neuroendocrine tumor s/p central pancreatectomy (, [place]), hypothyroidism, GERD, PUD, and migraines, ovarian cyst, ectopic s/p salpingectomy presents to the ER with RLQ pain x 2 days. Pt states she has been experiencing RLQ pain, with radiating to her lower back, constant, /10, "sharp" x 2 days, worsening beginning last night. A/w Nausea, decreased PO intake, lower back pain; has had similar episodes of this type of abdominal pain, previously attributed to epigastric area, 2/2 pancreatitis, but not in the RLQ. also h/o ovarian cyst/rupture, but usually manifested on left side. had last BM 1 day ago, described as painless and "rope-like." she took Percocet [employer]NU[employer], without relief. normal menses, LMP 02/05/19. no ocp use. denies no trauma or exertional activities. did eat cake for her recent birthday on 02/[birth year], but denies clear triggers or food precipitants. Denies fever, chills, chest pain, SOB, palpitation, dizziness, weakness, vomiting, diarrhea, bloody stools, vaginal discharge/bleeding, dysuria, urgency or frequency, bladder and bowel problems, focal weakness/paresthesias, leg swelling/pain, rash. No new changes in medications. No suspicious food intake Allergies: None Past Medical History/PSH: pancreatic neuroendocrine tumor s/p central pancreatectomy (05/2018, [place]), hypothyroidism, GERD, PUD, and migraines, ectopic s/p salpingectomy Social history: Lives with family. No tobacco, ETOH or drug use. Meds: none Surgery: Dr Allen GI: Dr Meléndez Review of systems Constitutional: no fevers or chills. No weakness HEENT: no headache or dizziness. No congestion. No visual/hearing disturbances. CVS: no cp or syncope. Resp: no sob. No cough. Gastrointestinal: no vomiting, diarrhea or bloody stools. +nausea, +abdominal pain Genitourinary: no urinary sx, hematuria. no vaginal discharge or bleeding. MUSCULOSKELETAL: No joint pain and swelling. No neck pain. +back pain SKIN: no redness or skin changes, no discharge, no rash. No wounds. Hematologic: no easy bruising/bleeding. NEUROLOGIC: No headache, dizziness, LOC or altered mental status. No weakness, numbness or tingling. Psych: no anxiety or depression Allergic/Immunologic: no allergies All other systems reviewed and negative, or as documented in HPI. Physical exam General: awake and alert, mild distress 2/2 pain. HEENT: NCAT, PERRL, EOMI, clear conjunctiva, anicteric, dry mucus membranes, clear oropharynx, no oral lesions.. Neck: neck supple, FROM Resp: CTAB, normal and even respirations, no respiratory distress CVS: RRR, no murmurs, 2+ peripheral pulses throughout, no peripheral edema Abdomen: soft, midline vertical incisional scar at epigastrium, +RLQ TTP no rebound or guarding. no CVAT. : normal external genitalia, no lesions, clear vaginal vault, no CMT, no adnexal tenderness. Smooth and pink cervix, closed. Back: nontender, normal inspection and ROM MSK: no edema, HUNTER x4, ROM intact. No clubbing or cyanosis. normal bulk and tone. Extremities: no calf tenderness Neuro: alert, oriented appropriately Psych: Calm and cooperative Skin: warm and well perfused, cap refill <2 sec, normal color, no rash or skin discoloration. 03/04/19 11:16 03/04/19 12:49 03/04/19 14:21 03/04/19 15:37 Past History - Past Medical History Allergies/Adverse Reactions: Allergies Allergy/AdvReac Type Severity Reaction Status Date / Time No Known Allergies Allergy Verified 03/04/19 10:39 Home Medications: Ambulatory Orders Lipase/Protease/Amylase [Jomar Dr 24,000 Units Capsule] 1 each PO AC 07/05/18 Omeprazole 40 mg PO DAILY 07/05/18 Levothyroxine [Synthroid -] 50 mcg PO DAILY 03/04/19 Ondansetron HCl [Zofran] 4 mg PO TID PRN #9 tablet 03/04/19 Oxycodone HCl 10 mg PO QID PRN #12 tablet MDD 4 03/04/19 Sennosides/Docusate Sodium [Senna-Docusate Sodium Tablet] 1 each PO BID PRN #14 tablet 03/04/19 COPD: No CHF: No DVT: No GI Disorders: Yes (PANCREATITIS) - Surgical History Abdominal Surgery: Yes (PANCREATIC MASS REMOVAL) - Psycho Social/Smoking Cessation Hx Smoking History: Former smoker Have you smoked in the past 12 months: Yes Number of Cigarettes Smoked Daily: 2 Information on smoking cessation initiated: No 'Breaking Loose' booklet given: 08/13/16 Hx Alcohol Use: No Drug/Substance Use Hx: No Substance Use Type: None *Physical Exam - Vital Signs Last Vital Signs Temp Pulse Resp BP Pulse Ox 98.9 F 74 15 154/81 99 03/04/19 10:39 03/04/19 10:39 03/04/19 10:39 03/04/19 10:39 03/04/19 10:39 Heart Score/ECG Review #1 ECG reviewed & interpreted by me at: 11:40 General ECG Interpretation: Sinus Rhythm, Normal Rate, Normal Intervals Compared to previous ECG there are: No significant change 03/04/19 12:18 EKG sinus rhythm 65 bpm, normal intervals. no ST elevations or depressions. narrow qrs ED Treatment Course - LABORATORY CBC & Chemistry Diagram: 03/04/19 10:55 03/04/19 10:55 Medical Decision Making - Medical Decision Making 03/04/19 10:57 Vital Signs Temp Pulse Resp BP Pulse Ox 98.9 F 74 15 154/81 99 03/04/19 10:39 03/04/19 10:39 03/04/19 10:39 03/04/19 10:39 03/04/19 10:39 DDx abdominal pain: Renal colic, biliary colic, metabolic/electrolyte derangements. GERD, PUD, esophageal spasm, pancreatitis, hepatitis, constipation , colitis, gastroenteritis, cholecystitis, UTI, pyelonephritis, ileus, SBO, medication side effect, hernia, appendicitis, diverticulitis, mesenteric ischemia. msk strain, mesenteric adenitis, psoas abscess, terminal ileitis. ectopic , TOA, ovarian cyst, torsion, vitals reviewed, wnl. no fever or systemic sx. pelvic exam as documented, unremarkable. laboratory results unremarkable, neg UA, neg preg test. normal wbc ct. lactic lipase considering RLQ pain and clinical findings and suggestions 2/[address] a/p to further elucidate spoke with JOSEPH Raphael at Dr Sahu office - agree with plan and updated 03/04/19 14:18 CT abdomen pelvis with large pancreatic pseudocyst within the body increase in size since June 2018, measuring 8 x 5.8 x 9.1 cm. Dilated distal pancreatic duct also increased up to 9 mm. No definitive evidence of acute pancreatitis. CT abdomen pelvis also negative for pneumoperitoneal, obstruction, abscess, appendicitis or diverticulitis, no sig pelvic free fluid or masses or significant lymphadenopathy. No evidence of infection,, no evidence of gastric outlet obstruction or biliary compression given normal LFTs and bilirubin. No major compression of the large vessels and patient without symptoms of IVC compression. No evidence of GI bleeding no perforation or peritonitis. 03/04/19 15:00 - lengthy discussion with Dr Allen/JOSEPH Raphael since patient is stable, well appearing, no superimposed infection or perf/ peritonitis or complication, can have outpatient endoscopic drainage of her pseudocyst will arrange for followup with Dr Jacobsen, affiliated with [place] and Dr Allen. Will discharge patient with a short course of opiates. Went over the risks of the medication. Advised patient to not mix with other products containing acetaminophen, to not combine with alcohol, or other illicit drugs, to not drive or operate machinery, and to refrain from any activity that will require complete attention while taking this medication. rx zofran and senna/colace for constipation relief/prevention given opioid control for severe pain Pt to be discharged in stable condition. Patient made aware of clinical impression, treatment recommendations and disposition plan, return precautions discussed (including but not limited to new or persistent/worsening symptoms, pain, fevers, or signs of infection, chest pain, respiratory distress, inability to tolerate oral intake, dehydration , syncope, or neurologic changes). Follow up with specialists as recommended, follow up information provided, take medications as instructed for duration of time. continue with supportive care, avoid triggers and precipitants. All questions answered to patient's satisfaction and expressed understanding and comfort with this. At the time of discharge, the patient is alert, clinically improved, tolerating po and verbalizes understanding of instructions, satisfied with the care received and felt comfortable with the plan. Patient does not suffer from an acute life-threatening medical condition at this time and is safe for outpatient follow-up. 03/04/19 15:37 Discharge - Discharge Information Problems reviewed: Yes Clinical Impression/Diagnosis: Pseudocyst of pancreas, Abdominal pain Condition: Stable Disposition: HOME - Admission No - Additional Discharge Information Prescriptions: Ondansetron HCl [Zofran] 4 mg PO TID PRN #9 tablet PRN Reason: nausea vomiting Oxycodone HCl 10 mg PO QID PRN #12 tablet MDD 4 PRN Reason: Severe Pain Sennosides/Docusate Sodium [Senna-Docusate Sodium Tablet] 1 each PO BID PRN #14 tablet PRN Reason: Constipation - Follow up/Referral Referrals: Kathryn Torres [Non Staff, Medical] - Nirali Jacobsen MD [Non Staff, Medical] - - Patient Discharge Instructions Patient Printed Discharge Instructions: Chronic Pancreatitis Additional Instructions: 1) Please follow-up with your primary surgeons in the next 1-2 days. Please call tomorrow for your appointment you are to follow up with Dr Allen, your surgeon, as well as Dr Jacobsen, your GI endoscopist - you will need endoscopic drainage of your pseudocyst as outpatient. 2) You were given a copy of the tests performed today. Please bring the results with you and review them with your primary care doctor. Your laboratory / imaging results revealed no signs of infection, necrosis, inflammation, perforation or peritonitis CT showed a large pseudocyst, but normal pancreatic enzymes. this is likely related to your chronic pancreatitis. 3) If you have any worsening of symptoms or any other concerns please return to the ED immediately. Return if worsening symptoms including fevers, headache, vomiting, visual or hearing disturbances, abdominal pain, chest pain, shortness of breath, syncope, dehydration, inability to take things by mouth/vomiting, altered mental status, or worsening concerning symptoms. 4) Please continue taking your home medications as directed. your medications on discharge include zofran 3X per day as needed for nausea and senna/colace twice a day for constipation relief/prevention . side effects may include upset stomach, abdominal pain, vomiting, or diarrhea. do not drink alcohol with your medications. Please take ACETAMINOPHEN (aka Tylenol) 650-975 mg every 6 hours, as needed, for pain. Please do not take these medications if you have a liver disease. Please take one tablet of OXYCODONE every 6 hours, as needed for SEVERE pain. Please do not take this medication unless you absolutely need it, it is very addictive. Please do not drive, operate heavy machinery or make important decisions while on this medication, it can cloud your judgement. this can also cause constipation so make sure to stay hydrated and use stool softener as needed. Stay well hydrated and rest adequately. Make an appointment. If you cannot follow-up with your primary care doctor please return to the ED - Post Discharge Activity Work/Back to School Note: Back to Work
[2019-03-04] MEDS ORDERED: morphine SULFATE 4 MG/ML VIAL ONE (11:13)
[2019-03-04] MEDS ORDERED: METOCLOPRAMIDE HCL INJECTION 10 MG/2 ML VIAL ONE (11:14)
[2019-03-04 11:32] LABS: BASO % 0.2 % (0-2.0); EOS % 1.7 % (0-4.5); HEMATOCRIT 34.7 % (32.4-45.2); HEMOGLOBIN 11.8 GM/dl (10.7-15.3); LYMPH % 16.5 % (8-40); MCH 30.3 pg (25.7-33.7); MCHC 33.9 g/dl (32.0-36.0); MEAN CELL VOLUME 89.3 fl (80-96); MEAN PLT VOLUME 10.8 fl (7.5-11.1); MONO % 8.3 % (3.8-10.2); NEUT % 73.3 % (42.8-82.8); PLATELET COUNT 87 K/MM3 (134-434); RBC 3.89 M/mm3 (3.60-5.2); RDW 13.6 % (11.6-15.6); WHITE BLOOD COUNT 6.6 K/mm3 (4.0-10.8)
[2019-03-04 11:40] LABS: ALBUMIN 4.1 g/dl (3.4-5.0); BILIRUBIN,TOTAL 0.7 mg/dl (0.2-1); CALCIUM 8.5 mg/dl (8.5-10); CREATININE 0.7 mg/dl (0.55-1.3); POTASSIUM 3.6 mmol/L (3.5-5.1); TOT PROT 6.9 g/dl (6.4-8.2)
[2019-03-04] MEDS ORDERED: ACETAMINOPHEN 1000 MG/100 ML VIAL (NON FORMULARY) IVPB ONE (12:49)
[2019-03-04] MEDS ORDERED: SODIUM CHLORIDE 0.9% 500 ML INFUS.BAG IV ONE (12:49)
[2019-03-04] MEDS ORDERED: ACETAMINOPHEN INJECTION 100 ML IVPB ONE (12:50)
[2019-03-04 15:44] VITALS: BP 134/86; PULSE 70; TEMP 98.1
--- NOTE | 2019-03-05 12:16 | EKG ---
Test Reason : Blood Pressure : / mmHG Vent. Rate : 065 BPM Atrial Rate : 065 BPM P-R Int : 138 ms QRS Dur : 086 ms QT Int : 426 ms P-R-T Axes : 072 064 051 degrees QTc Int : 443 ms NORMAL SINUS RHYTHM NORMAL ECG WHEN COMPARED WITH ECG OF 23-MAY-2018 17:23, NO SIGNIFICANT CHANGE WAS FOUND Confirmed by MICHAEL LOPEZ MD ([id number]) on 03/05/2019 12:15:53 PM Referred By: MATEO EVANS Confirmed By:MICHAEL LOPEZ MD
== END 2019-03-04 15:45 | disposition home or self-care (01) ==
LOC: FER 10:38
PROC: 3E033NZ Introduction of Analgesics, Hypnotics, Sedatives into Peripheral Vein, Percutaneous Approach (ICD-10-PCS; principal; 2019-03-04)
PROC: 3E0337Z Introduction of Electrolytic and Water Balance Substance into Peripheral Vein, Percutaneous Approach (ICD-10-PCS; 2019-03-04)
PROC: 3E033GC Introduction of Other Therapeutic Substance into Peripheral Vein, Percutaneous Approach (ICD-10-PCS; 2019-03-04)
DX: K86.3 Pseudocyst of pancreas (principal); R10.31 Right lower quadrant pain; E03.9 Hypothyroidism, unspecified; K21.9 Gastro-esophageal reflux disease without esophagitis; Z87.891 Personal history of nicotine dependence
CPT/HCPCS: 36415; 74177-TC; 80053; 81003; 83605; 83690; 84703; 85025; 87086; 93005; 99283-25; J0131; J7030